=== PATIENT | male | born 1965 | race Caucasian/White ===

== ENCOUNTER 2017-05-27 10:53 | Emergency (ER) | payer OTHER ==
[2017-05-27 11:01] VITALS: RESP 16; TEMP 98.3
[2017-05-27] MEDS ORDERED: RX INFO: IV CONTRAST WAS GIVEN 1 EACH MISC MISCELLANE PRN (11:16)
[2017-05-27] MEDS ORDERED: SODIUM CHLORIDE 0.9% 500 ML IV STA (11:16)
[2017-05-27] MEDS ORDERED: ONDANSETRON 4 MG/2 ML VIAL IVP STA (11:16)
--- NOTE | 2017-05-27 11:19 | ED ---
General Adult HPI - General Chief complaint: Abdominal Pain Stated complaint: abdominal pain Time Seen by Provider: 05/27/17 11:02 Source: patient, RN notes reviewed Mode of arrival: ambulatory Limitations: no limitations - History of Present Illness Initial comments: 51-year-old male presents to the emergency Department chief complaint of left- sided abdominal pain. Patient states this started about 2 weeks ago and was slowly gotten worse. Patient states she's had had a few episodes of diarrhea and nausea with it. He does have this lingering pain to the left side THE WHOLE LOWER ABDOMEN. HE DOES HAVE A HISTORY OF DIVERTICULITIS. HE STATES THAT HE HASN'T HAD ANY FEVER CHILLS. HE WAS CONCERNED BECAUSE THE SYMPTOMS JUST DO NOT SEEM TO BE IMPROVING AND HE SEEMS TO BE GETTING WORSE SO HE THOUGHT THAT HE SHOULD BE EVALUATED. IT IS MILD. THERE IS NO RADIATION. Patient denies any recent fever, chills, shortness of breath, chest pain, back pain, vomiting, numbness or tingling, dysuria or hematuria, constipation or diarrhea, headaches or visual changes, or any other current symptoms. - Related Data Home Medications Medication Instructions Recorded Confirmed Atorvastatin [Lipitor] 10 mg PO HS 05/27/17 05/27/17 Lisinopril [Zestril] 20 mg PO DAILY 05/27/17 05/27/17 Omeprazole 20 mg PO Q48H 05/27/17 05/27/17 Allergies Allergy/AdvReac Type Severity Reaction Status Date / Time sulfamethoxazole Allergy Unknown Verified 05/27/17 11:07 [From Bactrim] trimethoprim [From Bactrim] Allergy Unknown Verified 05/27/17 11:07 Review of Systems ROS Statement: Those systems with pertinent positive or pertinent negative responses have been documented in the HPI. ROS Other: All systems not noted in ROS Statement are negative. Past Medical History Past Medical History: No Reported History History of Any Multi-Drug Resistant Organisms: None Reported Past Surgical History: Cholecystectomy Additional Past Surgical History / Comment(s): nasel surg Past Psychological History: No Psychological Hx Reported Smoking Status: Current every day smoker Past Alcohol Use History: Rare Past Drug Use History: None Reported General Exam - General Exam Comments Initial Comments: General: The patient is awake and alert, in no distress, and does not appear acutely ill. Eye: Pupils are equal, round and reactive to light, extra-ocular movements are intact; there is normal conjunctiva bilaterally. No signs of icterus. Ears, nose, mouth and throat: There are moist mucous membranes. Neck: The neck is supple, there is no tenderness. Cardiovascular: There is a regular rate and rhythm. No murmur, rub or gallop is appreciated. Respiratory: Lungs are clear to auscultation, respirations are non-labored, breath sounds are equal. No wheezes, stridor, rales, or rhonchi. Gastrointestinal: Soft, non-distended, non-tender abdomen without masses or organomegaly noted. There is no rebound or guarding present. No CVA tenderness. Bowel sounds are unremarkable. Back: There is no tenderness to palpation in the midline. There is no obvious deformity. No rashes noted. Musculoskeletal: Normal ROM, no tenderness, There is no pedal edema. There is no calf tenderness or swelling. Sensation intact. Pulses equal bilaterally 2+. Neurological: CN II-XII intact, There are no obvious motor or sensory deficits. Coordination appears grossly intact. Speech is normal. Skin: Skin is warm and dry and no rashes or lesions are noted. Psychiatric: Cooperative, appropriate mood & affect, normal judgment. Limitations: no limitations Course Vital Signs 05/27/17 10:57 Temperature 98.3 F Pulse Rate 100 Respiratory 16 Rate Blood Pressure 129/77 O2 Sat by Pulse 97 Oximetry Medical Decision Making - Medical Decision Making 51-year-old male presents for left-sided abdominal pain. At this time lab work has been reviewed as well as CAT scan. This time we discussed results. We discussed continued outpatient follow-up with Dr. lazcano parameters all questions. Patient stated that he understood and he is in agreement this plan. All questions have been answered. He will be discharged. - Lab Data Result diagrams: 05/27/17 11:31 05/27/17 11:31 Lab Results 05/27/17 05/27/17 05/27/17 Range/Units 11:31 11:31 11:31 WBC 5.7 (3.8-10.6) k/uL RBC 5.28 (4.30-5.90) m/uL Hgb 15.9 (13.0-17.5) gm/dL Hct 47.7 (39.0-53.0) % MCV 90.3 (80.0-100.0) fL MCH 30.1 (25.0-35.0) pg MCHC 33.4 (31.0-37.0) g/dL RDW 13.0 (11.5-15.5) % Plt Count 185 (150-450) k/uL Neutrophils % 66 % Lymphocytes % 25 % Monocytes % 4 % Eosinophils % 3 % Basophils % 1 % Neutrophils # 3.7 (1.3-7.7) k/uL Lymphocytes # 1.4 (1.0-4.8) k/uL Monocytes # 0.3 (0-1.0) k/uL Eosinophils # 0.1 (0-0.7) k/uL Basophils # 0.0 (0-0.2) k/uL Sodium 140 (137-145) mmol/L Potassium 4.2 (3.5-5.1) mmol/L Chloride 107 (98-107) mmol/L Carbon Dioxide 24 (22-30) mmol/L Anion Gap 9 mmol/L BUN 17 (9-20) mg/dL Creatinine 1.00 (0.66-1.25) mg/dL Est GFR (MDRD) Af Amer >60 (>60 ml/min/1.73 sqM) Est GFR (MDRD) Non-Af >60 (>60 ml/min/1.73 sqM) Glucose 101 H (74-99) mg/dL Plasma Lactic Acid Jonathon 1.6 (0.7-2.0) mmol/L Calcium 9.5 (8.4-10.2) mg/dL Total Bilirubin 1.6 H (0.2-1.3) mg/dL AST 17 (17-59) U/L ALT 31 (21-72) U/L Alkaline Phosphatase 78 (38-126) U/L Total Protein 6.6 (6.3-8.2) g/dL Albumin 4.1 (3.5-5.0) g/dL Urine Color Urine Appearance (Clear) Urine pH (5.0-8.0) Ur Specific [place] (1.001-1.035) Urine Protein (Negative) Urine Glucose (UA) (Negative) Urine Ketones (Negative) Urine Blood (Negative) Urine Nitrite (Negative) Urine Bilirubin (Negative) Urine Urobilinogen (<2.0) mg/dL Ur Leukocyte Esterase (Negative) 11/26/17 Range/Units 12:20 WBC (3.8-10.6) k/uL RBC (4.30-5.90) m/uL Hgb (13.0-17.5) gm/dL Hct (39.0-53.0) % MCV (80.0-100.0) fL MCH (25.0-35.0) pg MCHC (31.0-37.0) g/dL RDW (11.5-15.5) % Plt Count (150-450) k/uL Neutrophils % % Lymphocytes % % Monocytes % % Eosinophils % % Basophils % % Neutrophils # (1.3-7.7) k/uL Lymphocytes # (1.0-4.8) k/uL Monocytes # (0-1.0) k/uL Eosinophils # (0-0.7) k/uL Basophils # (0-0.2) k/uL Sodium (137-145) mmol/L Potassium (3.5-5.1) mmol/L Chloride (98-107) mmol/L Carbon Dioxide (22-30) mmol/L Anion Gap mmol/L BUN (9-20) mg/dL Creatinine (0.66-1.25) mg/dL Est GFR (MDRD) Af Amer (>60 ml/min/1.73 sqM) Est GFR (MDRD) Non-Af (>60 ml/min/1.73 sqM) Glucose (74-99) mg/dL Plasma Lactic Acid Jonathon (0.7-2.0) mmol/L Calcium (8.4-10.2) mg/dL Total Bilirubin (0.2-1.3) mg/dL AST (17-59) U/L ALT (21-72) U/L Alkaline Phosphatase (38-126) U/L Total Protein (6.3-8.2) g/dL Albumin (3.5-5.0) g/dL Urine Color Yellow Urine Appearance Clear (Clear) Urine pH 7.0 (5.0-8.0) Ur Specific [place] 1.034 (1.001-1.035) Urine Protein Negative (Negative) Urine Glucose (UA) Negative (Negative) Urine Ketones Negative (Negative) Urine Blood Negative (Negative) Urine Nitrite Negative (Negative) Urine Bilirubin Negative (Negative) Urine Urobilinogen <2.0 (<2.0) mg/dL Ur Leukocyte Esterase Negative (Negative) - Radiology Data Radiology results: report reviewed, image reviewed Disposition Clinical Impression: Abdominal pain Disposition: HOME SELF-CARE Condition: Stable Instructions: Abdominal Pain (ED) Additional Instructions: Please use medication as discussed. Please follow up with family doctor if symptoms have not improved over the next two days. Please return to the emergency room if your symptoms increase or worsen or for any other concerns. Referrals: Anderson Reyes MD [Primary Care Provider] - 1-2 days Time of Disposition: 12:49
[2017-05-27 11:45] LABS: Basophils % (A) 1 %; CH 31.6; CHCM 35.1; Eosinophils # (A) 0.1 k/uL (0-0.7); Eosinophils % (A) 3 %; HCT 47.7 % (39.0-53.0); HDW 2.71; HGB 15.9 gm/dL (13.0-17.5); Luc # (Auto) 0.09; Luc % (Auto) 2; Lymphocytes # (A) 1.4 k/uL (1.0-4.8); Lymphocytes % (A) 25 %; MCH 30.1 pg (25.0-35.0); MCHC 33.4 g/dL (31.0-37.0); MCV 90.3 fL (80.0-100.0); Mean Platelet Volume 7.6; Monocytes # (A) 0.3 k/uL (0-1.0); Monocytes % (A) 4 %; Neutrophils # (A) 3.7 k/uL (1.3-7.7); Neutrophils % (A) 66 %; RBC 5.28 m/uL (4.30-5.90); WBC 5.7 k/uL (3.8-10.6); WBC (Perox) 6.21
[2017-05-27 11:58] LABS: ALT 31 U/L (21-72); AST 17 U/L (17-59); Alkaline Phosphatase 78 U/L (38-126); Anion Gap 9 mmol/L; Blood Urea Nitrogen 17 mg/dL (9-20); Calcium 9.5 mg/dL (8.4-10.2); Carbon Dioxide 24 mmol/L (22-30); Chloride 107 mmol/L (98-107); Glucose 101 mg/dL (74-99); Non-African American GFR(MDRD) >60 (>60 ml/min/1.73 sqM); Potassium 4.2 mmol/L (3.5-5.1); Sodium 140 mmol/L (137-145); Total Bilirubin 1.6 mg/dL (0.2-1.3); Total Protein 6.6 g/dL (6.3-8.2)
--- NOTE | 2017-05-27 12:08 | CT ---
EXAMINATION TYPE: CT abdomen pelvis w con DATE OF EXAM: 05/27/2017 COMPARISON: NONE HISTORY: Mid abd pain, diarrhea, nausea CT DLP: 577.2 mGycm CONTRAST: CT scan of the abdomen and pelvis is performed without Oral Contrast and with IV Contrast, patient in jected with 100 mL of Omnipaque 300. FINDINGS: LUNG BASES-: No visible nodule. No infiltrate. LIVER/GB: Cholecystectomy clips are in place. No space occupying hepatic lesion. Biliary tree is o f normal caliber. PANCREAS: No inflammation. No distinct mass. SPLEEN: No splenic enlargement. No lesion seen. ADRENALS: No nodule. No thickening. KIDNEYS/BLADDER: No hydronephrosis. No nephrolithiasis. Renal cystic changes left kidney. No solid renal lesion identified. Urinary bladder grossly unremarkable. BOWEL: Normal appendix. Normal bowel caliber. No inflammation. GENITAL ORGANS: No gross abnormality. LYMPH NODES: No greater than 1cm abdominal or pelvic lymph nodes are appreciated. AORTA: No significant abnormality. OSSEOUS STRUCTURES: No significant abnormality is seen. OTHER: No significant additional abnormality is seen. IMPRESSION: 1. No acute intra-abdominal process to account for the patient's symptoms.
[2017-05-27 12:30] LABS: Appearance,Urine Clear (Clear); Bilirubin,Urine Negative (Negative); Glucose,Urine (UA) Negative (Negative); Ketones,Urine Negative (Negative); Leukocyte Esterase,Urine Negative (Negative); Nitrite,Urine Negative (Negative); Protein,Urine Negative (Negative); Specific Gravity,Urine 1.034 (1.001-1.035); UA Billing (MACRO vs. MICRO) CHEM; Urobilinogen,Urine <2.0 mg/dL (<2.0)
[2017-05-27 13:00] VITALS: BP 121/72; PULSE 56
== END 2017-05-27 13:08 | disposition home or self-care (01) ==
LOC: EC 10:53
DX: R10.32 Left lower quadrant pain (principal); R19.7 Diarrhea, unspecified; R11.0 Nausea; F17.200 Nicotine dependence, unspecified, uncomplicated; Z79.899 Other long term (current) drug therapy; Z88.1 Allergy status to other antibiotic agents; Z90.49 Acquired absence of other specified parts of digestive tract
CPT/HCPCS: 36415; 80053; 83605; 85025; 81003; 87040; 87086; 74177; 99284; 96374; 96361; J2405; Q9967; 80175

== ENCOUNTER → 2017-08-09 | Outpatient (CLI) | payer OTHER ==
--- NOTE | 2017-08-09 10:27 | XR ---
EXAMINATION TYPE: XR orbit detect foreign body DATE OF EXAM: 08/09/2017 COMPARISON: NONE HISTORY: Possible foreign body TECHNIQUE: 3 views submitted FINDINGS: No radio metallic foreign body overlying the orbits. Osseous structures intact. IMPRESSION: No metallic foreign body identified overlying the orbits
--- NOTE | 2017-08-09 12:23 | MR ---
EXAMINATION TYPE: MR brain wo con DATE OF EXAM: 08/09/2017 COMPARISON: NONE HISTORY: Essential tremor T1-weighted sagittal, T2, FLAIR, and diffusion axial, and T2 coronal coronal views of the brain are s ubmitted. There is no evidence of acute ischemia. Changes of chronic sinusitis noted and there is a nasal septa l deviation. There are a few scattered focal areas of abnormal signal the white matter which are nonspecific bilat erally. There is no mass effect. Craniocervical junction maintained. Sella turcica has a normal appearance. No cerebellopontine angle mass. Abnormal signal the basal ganglia bilaterally could been the basis of remote lacunar infarction or prominent Virchow-Supa spaces. IMPRESSION: 1. No acute intracranial process. 2. Nonspecific minimal white matter changes. Remote microvascular ischemia most likely etiology. Demy elinating process and other etiologies not entirely excluded.
== END | disposition home or self-care (01) ==
LOC: RADMRIMAIN 09:56
PROVIDERS: ATTEND Psychiatry & Neurology Neurology
DX: G25.0 Essential tremor (principal)
CPT/HCPCS: 70030; 70551

== ENCOUNTER → 2023-11-05 | Outpatient (CLI) | payer OTHER ==
--- NOTE | 2023-11-07 07:09 | CA ---
Transthoracic Echo Report Name: Dieudonne Finn Age: 58 Gender: M : 1965 Exam Date: 11/05/2023 18:05 Exam Location: [place] [facility] Ht (in): 67 Wt (lb): 214 Ordering Physician: Anderson Reyes MD Attending/Referring Phys: Anderson Reyes MD [employer] Courtney Duffy RDCS Procedure CPT: Indications: R60.0 LOCALIZED EDEMA Cardiac Hx: Technical Quality: Fair Contrast 1: Total Dose (mL): Contrast 2: Total Dose (mL): MEASUREMENTS (Male / Female) Normal Values 2D ECHO LV Diastolic Diameter PLAX 3.9 cm 4.2 - 5.9 / 3.9 - 5.3 cm LV Systolic Diameter PLAX 2.8 cm IVS Diastolic Thickness 1.4 cm 0.6 - 1.0 / 0.6 - 0.9 cm LVPW Diastolic Thickness 1.2 cm 0.6 - 1.0 / 0.6 - 0.9 cm LV Relative Wall Thickness 0.7 RV Internal Dim ED PLAX 3.1 cm LA Volume 53.7 cm??? 18 - 58 / 22 - 52 cm??? LA Volume Index 24.7 cm???/m??? 16 - 28 cm???/m??? M-MODE Aortic Root Diameter MM 2.9 cm LA Systolic Diameter MM 4.1 cm LA Ao Ratio MM 1.4 AV Cusp Separation MM 1.7 cm DOPPLER AV Peak Velocity 122.8 cm/s AV Peak Gradient 6.0 mmHg AV Mean Velocity 92.4 cm/s AV Mean Gradient 3.7 mmHg AV Velocity Time Integral 23.6 cm LVOT Peak Velocity 116.3 cm/s LVOT Peak Gradient 5.4 mmHg LVOT Velocity Time Integral 21.7 cm MV Area PHT 4.5 cm??? Mitral E Point Velocity 107.5 cm/s Mitral A Point Velocity 0.6 cm/s Mitral E to A Ratio 165.9 MV Deceleration Time 168.5 ms MV E' Velocity 12.1 cm/s Mitral E to MV E' Ratio 8.9 TR Peak Velocity 203.4 cm/s TR Peak Gradient 16.6 mmHg Right Ventricular Systolic Press 21.6 mmHg FINDINGS Left Ventricle Mildly increased left ventricular wall thickness. Left ventricular cavity size normal. Normal left ventricular systolic function with no obvious regional wall motion abnormalities. Left ventricular ejection fraction is estimated at 55-60 %. Grade 1 diastolic dysfunction. Right Ventricle Normal right ventricular size and function. Right ventricular systolic pressure within normal limits. Right Atrium Normal right atrial size. Left Atrium Normal left atrial size. Mitral Valve Structurally normal mitral valve. Mitral valve thickened. Mild mitral annular calcification. Mild mitral regurgitation. Aortic Valve Trileaflet aortic valve. No aortic valve stenosis or regurgitation. Aortic valve sclerosis. Tricuspid Valve Structurally normal tricuspid valve. Mild tricuspid regurgitation. Pulmonic Valve Structurally normal pulmonic valve. Trace pulmonic regurgitation. Pericardium No pericardial effusion. Aorta Normal size aortic root and proximal ascending aorta. CONCLUSIONS Technically difficult study for interpretation was poorly visualized endocardial Normal LV systolic function Previewed by: Dr. Tito Matute MD (Electronically Signed) Final Date: 07 Nov 2023 07:08
== END | disposition home or self-care (01) ==
LOC: RADECHMAIN 18:01
PROVIDERS: ATTEND Internal Medicine
DX: R60.0 Localized edema (principal)
CPT/HCPCS: 93306

== ENCOUNTER → 2024-10-22 | Outpatient (CLI) | payer OTHER ==
--- NOTE | 2024-10-22 14:55 | US ---
EXAMINATION TYPE: US arterial LE single level DATE OF EXAM: 10/22/2024 2:24 PM COMPARISONS: None. CLINICAL INDICATION: Male, 59 years old with history of R60.0 LOCALIZED EDEMA; Edema. Arterial exam p er Dr. Reyes. Pt has A fib TECHNIQUE: Systolic pressures were taken of the upper and lower extremity arteries with ankle-brachia l indices and toe brachial indices calculated bilaterally. History of: Smoker: Previous Hypertension: Yes Diabetic: No Hyperlipidemia: Yes TIA/CVA: No Previous Vascular Surgery: No ME: No Vascular Ulcers: Right anterior ceballos wound Claudication: None Gangrene: No FINDINGS: Doppler Waveforms: Right: Left: Pulse Volume Recording: Pressure Gradients: Brachial Artery systolic pressure: Right: 117 Left: 124 Posterior Tibial artery systolic pressure: Right: 136 Left: 145 Dorsalis Pedis artery systolic pressure: Right: 126 Left: 130 Toe artery systolic pressure: Right: 104 Left: 124 Ankle-Brachial Indices: Right: 1.10 Left: 1.17 Toe Brachial Indices: Right: 0.84 Left: 1.00 (Normal > 0.6; Mild 0.35 - 0.59, Moderate 0.12 - 0.34, Severe <0.12) IMPRESSION: 1. No suspicious changes to suggest significant stenosis. [facility], Workstation: [facility], 10/22/2024 2:52 PM
== END | disposition home or self-care (01) ==
LOC: RADUSWWP 13:51
PROVIDERS: ATTEND Internal Medicine
DX: I48.91 Unspecified atrial fibrillation (principal); R60.0 Localized edema
CPT/HCPCS: 93922

== ENCOUNTER → 2024-12-10 | Outpatient (CLI) | payer OTHER ==
--- NOTE | 2024-12-10 14:58 | XR ---
EXAMINATION TYPE: XR lumbar spine 2 or 3V DATE OF EXAM: 12/10/2024 9:09 AM COMPARISON: None. CLINICAL INDICATION: Male, 59 years old with history of M47.816 SPONDYLOSIS W/O MYELOPATHY OR RADICUL OPATH, pain TECHNIQUE: 3 view(s) obtained. FINDINGS: There are 5 lumbar-type vertebral bodies. Pedicles are intact. Disc heights are preserved. Vertebral body heights are preserved. Vascular calcifications are within the aorta. IMPRESSION: 1. No acute osseous abnormality lumbar spine. [facility], , 12/10/2024 2:56 PM
== END | disposition home or self-care (01) ==
LOC: RADXRMAIN 08:48
PROVIDERS: ATTEND Internal Medicine
DX: M47.816 Spondylosis without myelopathy or radiculopathy, lumbar region (principal)
CPT/HCPCS: 72100